=== PATIENT | male | born 1980 | race American Indian/Alaskan Native ===

== ENCOUNTER 2017-09-07 11:24 | Emergency (ER) | payer SELFPAY ==
[2017-09-07] MEDS ORDERED: CATAPRES PO ONE ×2 (16:50→17:08)
[2017-09-07] MEDS ORDERED: HCTZ PO ONE (16:50)
[2017-09-07] MEDS ORDERED: ZESTRIL PO ONE (16:50)
[2017-09-07] MEDS ORDERED: BOOSTRIX IM ONE (17:08)
[2017-09-07] MEDS ORDERED: AUGMENTIN 875 MG PO ONE (17:08)
--- NOTE | 2017-09-07 18:06 | Emergency Department Report ---
ED Animal Bite HPI - General Chief Complaint: Animal Bite Stated Complaint: ANIMAL BITE Time Seen by Provider: 09/07/17 16:45 Source: patient Mode of arrival: Ambulatory Limitations: No Limitations - History of Present Illness Initial Comments: Patient seized for about 2 weeks now he hasn't taken his blood pressure medications. He said he couldn't afford it Complaint: animal bite (from a stray cat) Onset/Timin (day) -: Gradual Location: other (right hand) Right: Hand Animal: cat Animal Control Notified: Yes Description: wild animal (stay cat) Mechanism: bite, scratch Pain Description: dull Context: unprovoked Associated Symptoms: none Treatments Prior to Arrival: irrigation (wash with soap and water and applied peroxide to the site) - Related Data Patient Tetanus UTD: No Previous Rx's Medication Instructions Recorded Last Taken Type Amoxicillin/Potassium Clav 1 each PO BID #20 tablet 09/07/17 Unknown Rx [Augmentin 875-125 Tablet] Hydrochlorothiazide [HCTZ] 25 mg PO QDAY #30 tablet 09/07/17 Unknown Rx Lisinopril [Zestril TAB] 40 mg PO QDAY #30 tablet 09/07/17 Unknown Rx amLODIPine [Norvasc] 5 mg PO DAILY #30 tab 09/07/17 Unknown Rx Allergies Allergy/AdvReac Type Severity Reaction Status Date / Time No Known Allergies Allergy Unverified 09/07/17 12:22 ED Review of Systems ROS: Stated complaint: ANIMAL BITE Other details as noted in HPI Comment: All other systems reviewed and negative ED Past Medical Hx - Past Medical History Previous Medical History?: Yes Hx Hypertension: Yes (out of meds) Hx Tuberculosis: No - Surgical History Past Surgical History?: Yes Additional Surgical History: nate knee surgery - Social History Smoking Status: Never Smoker Substance Use Type: Alcohol, Prescribed - Medications Home Medications: Home Medications Medication Instructions Recorded Confirmed Last Taken Type Amoxicillin/Potassium Clav 1 each PO BID #20 tablet 09/07/17 Unknown Rx [Augmentin 875-125 Tablet] Hydrochlorothiazide [HCTZ] 25 mg PO QDAY #30 tablet 09/07/17 Unknown Rx Lisinopril [Zestril TAB] 40 mg PO QDAY #30 tablet 09/07/17 Unknown Rx amLODIPine [Norvasc] 5 mg PO DAILY #30 tab 09/07/17 Unknown Rx ED Physical Exam - General Limitations: No Limitations General appearance: alert, in no apparent distress - Head Head exam: Present: atraumatic, normocephalic - Eye Eye exam: Present: normal appearance, PERRL - ENT ENT exam: Present: mucous membranes moist - Neck Neck exam: Present: normal inspection - Respiratory Respiratory exam: Present: normal lung sounds bilaterally. Absent: respiratory distress - Cardiovascular Cardiovascular Exam: Present: regular rate, normal rhythm. Absent: systolic murmur, diastolic murmur, rubs, gallop - GI/Abdominal GI/Abdominal exam: Present: soft, normal bowel sounds - Extremities Exam Extremities exam: Present: other (scratch [place] on his right dorsal aspect of the hand) - Back Exam Back exam: Present: normal inspection, full ROM - Neurological Exam Neurological exam: Present: alert, oriented X3 - Skin Skin exam: Present: warm, dry ED Course Vital Signs 09/07/17 09/07/17 09/07/17 12:22 16:37 17:07 Temperature 98.5 F Pulse Rate 82 86 86 Respiratory 16 18 Rate Blood Pressure 179/123 206/140 Blood Pressure 206/140 [Left] O2 Sat by Pulse 99 99 Oximetry 09/07/17 09/07/17 17:15 17:40 Temperature Pulse Rate 86 Respiratory 18 Rate Blood Pressure 206/140 Blood Pressure [Left] O2 Sat by Pulse 99 Oximetry - Reevaluation(s) Reevaluation #1: 09/07/17 18:10 Patient's blood pressure still elevated at this time. He was given lisinopril 40 mg and hydrochlorothiazide 25 mg and clonidine 0.2 mg but despite this his blood pressure still elevated, recheck it again in about 30 minutes. Patient has just remembered that he also takes amlodipine 5 mg and he will be given this dose. 09/07/17 19:12 On recheck the blood pressure is much improved Critical Care Time: No Critical care attestation.: If time is entered above; I have spent that time in minutes in the direct care of this critically ill patient, excluding procedure time. ED Disposition Clinical Impression: Cat bite involving extremity, Uncontrolled hypertension Disposition: -01 TO HOME OR SELFCARE Is pt being admited?: No Does the pt Need Aspirin: No Condition: Stable Instructions: Hypertension (ED) Additional Instructions: Call animal control tomorrow to follow-up. Prescriptions: amLODIPine [Norvasc] 5 mg PO DAILY #30 tab Amoxicillin/Potassium Clav [Augmentin 875-125 Tablet] 1 each PO BID #20 tablet Hydrochlorothiazide [HCTZ] 25 mg PO QDAY #30 tablet Lisinopril [Zestril TAB] 40 mg PO QDAY #30 tablet Referrals: [facility] [Provider Group] - 3-5 Days Time of Disposition: 19:17 Print Language: CAMBODIAN
[2017-09-07] MEDS ORDERED: NORVASC PO ONE (18:13)
[2017-09-07 19:04] VITALS: BP 159/108
== END 2017-09-07 19:30 | disposition home or self-care (01) ==
LOC: ED 11:24
DX: S61.451A Open bite of right hand, initial encounter (principal); I10 Essential (primary) hypertension; W55.01XA Bitten by cat, initial encounter; Y93.89 Activity, other specified; Y92.89 Other specified places as the place of occurrence of the external cause; Y99.8 Other external cause status
CPT/HCPCS: 90471; 90715; 96372